=== PATIENT | male | born 1960 | race Caucasian/White ===

== ENCOUNTER 2024-12-06 06:16 | Day surgery (SDC) | payer MEDICARE, BC, SELFPAY | END 2024-12-06 14:23 | disposition home or self-care (01) | LOC: GI 06:16 | PROVIDERS: ATTENDING PHYSICIAN Surgery; FAMILY PHYSICIAN Internal Medicine | DX: Z12.11 Encounter for screening for malignant neoplasm of colon (principal) | CPT/HCPCS: G0121 ==